=== PATIENT | male | born 1960 | race Caucasian/White ===

== ENCOUNTER 2017-03-18 17:25 | Inpatient (IN) | payer MEDICARE ==
[~2017-03-18] VITALS: Ht 167.6 cm; Wt 68.0 kg
[2017-03-18 22:00] VITALS: BP 114/75
[2017-03-19] VITALS: BP 111/65
[2017-03-19] MEDS ORDERED: Promethazine/DM 6.25mg/5ml ORAL PRN (00:45)
[2017-03-19 04:00] VITALS: BP 114/74
[2017-03-19] MEDS: NovoLOG Insulin Flexpen SUBQ SCH ×2 (06:30→11:30)
[2017-03-19 07:06] LABS: ANION GAP 13 (5-15); CALCIUM 9.1 mg/dL (8.6-10.2); CARBON DIOXIDE 29 mEQ/L (20-30); CHLORIDE 102 mEQ/L (98-107); GLOMERULAR FILTRATION RATE > 60 mL/min (>60); HEMOLYSIS 6; POTASSIUM 4.4 mEQ/L (3.4-4.9); SODIUM 144 mEQ/L (135-145)
[2017-03-19 07:09] LABS: BASOPHILS % (AUTO) 0.9 % (0.0-2.0); EOSINOPHILS % (AUTO) 4.2 % (0.0-3.0); LYMPHOCYTES % (AUTO) 24.3 % (20.0-45.0); MEAN CORPUSCULAR HEMOGLOBIN 32.9 PG (27.0-31.0); MEAN CORPUSCULAR HGB CONC 34.4 G/DL (32.0-36.0); MEAN CORPUSCULAR VOLUME 96 FL (80-99); MEAN PLATELET VOLUME 9.6 FL (6.5-10.1); MONOCYTES % (AUTO) 9.3 % (1.0-10.0); NEUTROPHILS % (AUTO) 61.3 % (45.0-75.0); PLATELET COUNT 148 K/UL (150-450); RED BLOOD COUNT 4.67 M/UL (4.70-6.10); WHITE BLOOD COUNT 7.3 K/UL (4.8-10.8)
[2017-03-19 08:46] VITALS: BP 116/78
[2017-03-19] MEDS: ZyPREXA Zydis 10mg tab ORAL SCH (09:14)
[2017-03-19] MEDS: FLUOROMETHOLONE 0.1% BOTH EYES SCH ×2 (09:39→17:46)
[2017-03-19] MEDS: OPTH BOTH EYES SCH ×2 (09:39→17:46)
[2017-03-19 11:21] VITALS: BP 110/69
--- NOTE | 2017-03-19 11:36 | Diagnostic Imaging Report ---
Indication: COPD shortness of breath Technique: One view of the chest Comparison: none Findings: Lungs and pleural spaces are clear. Heart size is normal. Aorta is somewhat tortuous Impression: No acute process
--- NOTE | 2017-03-19 13:57 | History and Physical ---
History of Present Illness General Date patient seen: Mar 19, 2017 Time patient seen: 13:57 Reason for Hospitalization: COPD exacerbation Present Illness HPI 56yo male with pmh of COPD, depression, bipolar d/o who presents with SOB. Pt states that he has been feeling more SOB and w/ cough productive of mucus for the past few days. Pt denies f/c, n/v, d/c, chest pain, abd pain, dysuria. Pt also c/o generalized weakness and wants to get PT/OT rehab. Allergies: Coded Allergies: PENICILLINS (Verified Allergy, Intermediate, 03/18/17) Patient History History Provided By: Patient, Medical Record, PMD Healthcare decision maker Resuscitation status Advanced Directive on File Yes Past Medical/Surgical History Past Medical/Surgical History: (1) COPD (chronic obstructive pulmonary disease) (2) Depression (3) Bipolar disorder Family History Family History: Patient reports no known family medical history. Social History Social History: (1) lives at board and care Review of Systems Constitutional: Reports: weakness Eye: Reports: no symptoms ENT: Reports: no symptoms Respiratory: Reports: cough, shortness of breath Cardiovascular: Reports: no symptoms Gastrointestinal: Reports: no symptoms Genitourinary: Reports: no symptoms Musculoskeletal: Reports: no symptoms Skin: Reports: no symptoms Psychiatric: Reports: no symptoms Neurological: Reports: no symptoms Endocrine: Reports: no symptoms Hematologic/Lymphatic: Reports: no symptoms All Other Systems: negative except mentioned in HPI Physical Exam Physical Exam Narrative General: alert, cooperative, no distress, appears stated age Head: normocephalic, without obvious abnormality, atraumatic Eyes: conjunctivae/corneas clear. PERRL, EOM's intact Throat: lips, mucosa, and tongue normal. MMM Neck: supple, symmetrical, trachea midline, and no JVD Lungs: +wheezing b/l Heart: regular rate and rhythm, S1, S2 normal, no murmur, click, rub or gallop Abdomen: soft, non-tender, non-distended, bowel sounds normal; no masses or organomegaly Extremities: extremities normal, atraumatic, no cyanosis or edema Pulses: 2+ and symmetric Skin: skin color, texture, turgor normal; no rashes or lesions Neurologic: grossly normal, no focal deficits Last 24 Hour Vital Signs Date Time Temp Pulse Resp B/P Pulse Ox O2 Delivery O2 Flow Rate FiO2 03/19/17 11:21 97.9 69 15 110/69 98 Room Air 03/19/17 08:46 97.3 84 15 116/78 97 Room Air 03/19/17 04:00 97.7 79 18 114/74 96 Room Air 03/19/17 00:00 97.0 76 18 111/65 95 Room Air 03/18/17 22:00 97.7 78 18 114/75 96 Room Air Intake and Output 03/18/17 03/19/17 19:00 07:00 Intake Total 250 ml Balance 250 ml Intake Oral 250 ml # Voids 1 Laboratory Tests Test 03/19/17 05:35 White Blood Count 7.3 K/UL (4.8-10.8) Red Blood Count 4.67 M/UL (4.70-6.10) L Hemoglobin 15.4 G/DL (14.2-18.0) Hematocrit 44.7 % (42.0-52.0) Mean Corpuscular Volume 96 FL (80-99) Mean Corpuscular Hemoglobin 32.9 PG (27.0-31.0) H Mean Corpuscular Hemoglobin Concent 34.4 G/DL (32.0-36.0) Red Cell Distribution Width 12.0 % (11.6-14.8) Platelet Count 148 K/UL (150-450) L Mean Platelet Volume 9.6 FL (6.5-10.1) Neutrophils (%) (Auto) 61.3 % (45.0-75.0) Lymphocytes (%) (Auto) 24.3 % (20.0-45.0) Monocytes (%) (Auto) 9.3 % (1.0-10.0) Eosinophils (%) (Auto) 4.2 % (0.0-3.0) H Basophils (%) (Auto) 0.9 % (0.0-2.0) Sodium Level 144 mEQ/L (135-145) Potassium Level 4.4 mEQ/L (3.4-4.9) Chloride Level 102 mEQ/L (98-107) Carbon Dioxide Level 29 mEQ/L (20-30) Anion Gap 13 (5-15) Blood Urea Nitrogen 10 mg/dL (7-23) Creatinine 1.0 mg/dL (0.7-1.2) Estimat Glomerular Filtration Rate > 60 mL/min (>60) Glucose Level 92 mg/dL (74-106) Calcium Level 9.1 mg/dL (8.6-10.2) Height (Feet): 5 Height (Inches): 6.00 Weight (Pounds): 150 Medications Current Medications Medications (Trade) Dose Ordered Sig/Eldon Route PRN Reason Start Time Stop Time Status Last Admin Dose Admin Dextrose (Dextrose 50%) STAT PRN IV Hypoglycemia 03/19/17 00:30 04/18/17 00:29 Fluorometholone (Flarex/FML) 1 drop TWICE A DAY BOTH EYES 03/19/17 09:00 04/18/17 08:59 03/19/17 09:39 Fluoxetine HCl (PROzac) 20 mg DAILY ORAL 03/19/17 09:00 04/18/17 08:59 03/19/17 09:14 Insulin Aspart (NovoLOG) BEFORE MEALS AND HS SUBQ 03/19/17 06:30 04/18/17 06:29 Levothyroxine Sodium (Synthroid) 100 mcg DAILY@0630 ORAL 03/19/17 06:30 04/18/17 06:29 03/19/17 06:30 Olanzapine (ZyPREXA Zydis) 20 mg DAILY ORAL 03/19/17 09:00 04/18/17 08:59 03/19/17 09:14 Pantoprazole (Protonix) 40 mg DAILY ORAL 03/19/17 09:00 04/18/17 08:59 03/19/17 09:13 Promethazine HCl/ Dextromethorphan (Phenergan DM) 6.25 mg Q6H PRN ORAL For Cough 03/19/17 00:45 04/18/17 00:44 Risperidone (RisperDAL) 1 mg TWICE A DAY ORAL 03/19/17 09:00 04/18/17 08:59 03/19/17 09:14 Risperidone (RisperDAL) 2 mg TWICE A DAY ORAL 03/19/17 09:00 04/18/17 08:59 03/19/17 09:20 Assessment/Plan Problem List: (1) COPD exacerbation ICD Codes: J44.1 - Chronic obstructive pulmonary disease with (acute) exacerbation SNOMED: 853021307, 244613931 (2) Bipolar disorder ICD Codes: F31.9 - Bipolar disorder, unspecified SNOMED: 72293789 (3) Depression ICD Codes: F32.9 - Major depressive disorder, single episode, unspecified SNOMED: 15807495 Status: stable Assessment/Plan Admit inpt Nebs q6h ATC and q4h PRN Prednisone 40mg qd x 5d Will hold off on abx as not clear infectious sign (no fever, no leukocytosis) Cont other meds 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 Disposition: Once the patient is stable to leave the hospital, I anticipate the patient will likely be discharged to the following environment: SNF I spent 70 minutes on this patient's case, and 38 minutes were dedicated to counseling and/or care coordination. Discussed with patient/family, nursing staff, SW/CM rregarding clinical status, treatment course, and disposition planning. Time of note may not reflect time of encounter. Nicolette Stinson M.D. Mar 19, 2017 13:57
[2017-03-19] MEDS ORDERED: Milk of Magnesia 30ml Ud ORAL PRN (14:00)
[2017-03-19] MEDS ORDERED: Mylanta II UD 30ml ORAL PRN (14:00)
[2017-03-19] MEDS ORDERED: DuoNeb 0.5-3(2.5)mg/3ml neb HHN PRN (14:00)
[2017-03-19] MEDS ORDERED: Miralax 17gm pkt ORAL PRN (14:00)
[2017-03-19] MEDS ORDERED: DuoNeb 0.5-3(2.5)mg/3ml neb ONE (14:15)
[2017-03-19] MEDS: DuoNeb 0.5-3(2.5)mg/3ml neb HHN SCH ×2 (14:44→20:12)
[2017-03-19] MEDS: PredniSONE 20mg tab ORAL SCH (16:09)
[2017-03-19 16:17] VITALS: BP 110/71
[2017-03-19 20:00] VITALS: BP 109/70
[2017-03-19] MEDS: Heparin 5000 units/ml inj SUBQ SCH (21:00)
[2017-03-19] MEDS: Docusate 100mg cap ORAL SCH (21:02)
[2017-03-20] VITALS: BP 109/72
[2017-03-20] MEDS: DuoNeb 0.5-3(2.5)mg/3ml neb HHN SCH ×4 (00:11→19:49)
[2017-03-20 04:00] VITALS: BP 111/71
[2017-03-20 07:08] LABS: BASOPHILS % (AUTO) 0.3 % (0.0-2.0); EOSINOPHILS % (AUTO) 0.2 % (0.0-3.0); LYMPHOCYTES % (AUTO) 16.9 % (20.0-45.0); MEAN CORPUSCULAR HEMOGLOBIN 33.8 PG (27.0-31.0); MEAN CORPUSCULAR HGB CONC 36.3 G/DL (32.0-36.0); MEAN CORPUSCULAR VOLUME 93 FL (80-99); MEAN PLATELET VOLUME 10.4 FL (6.5-10.1); MONOCYTES % (AUTO) 5.4 % (1.0-10.0); NEUTROPHILS % (AUTO) 77.3 % (45.0-75.0); PLATELET COUNT 180 K/UL (150-450); RED BLOOD COUNT 4.83 M/UL (4.70-6.10); RED CELL DISTRIBUTION WIDTH 11.8 % (11.6-14.8); WHITE BLOOD COUNT 8.6 K/UL (4.8-10.8)
[2017-03-20 07:19] LABS: HEMOGLOBIN A1C 4.8 % (< 6.0)
[2017-03-20 07:27] LABS: ALANINE AMINOTRANSFERASE 29 U/L (3-41); ALBUMIN/GLOBULIN RATIO 1.8 (1.0-2.7); ANION GAP 18 (5-15); ASPARTATE AMINO TRANSFERASE 19 U/L (5-40); CALCIUM 9.1 mg/dL (8.6-10.2); CARBON DIOXIDE 23 mEQ/L (20-30); CHLORIDE 99 mEQ/L (98-107); CHOLESTEROL 164 mg/dL (< 200); CHOLESTEROL/HDL RATIO 3.9 (3.3-4.4); CREATININE 0.8 mg/dL (0.7-1.2); GLOMERULAR FILTRATION RATE > 60 mL/min (>60); HEMOLYSIS 7; LDL CHOLESTEROL (CALC.) 91 mg/dL (60-99); POTASSIUM 4.1 mEQ/L (3.4-4.9); SODIUM 140 mEQ/L (135-145); TOTAL PROTEIN 6.6 g/dL (6.6-8.7)
[2017-03-20 07:29] LABS: TROPONIN I < 0.30 ng/mL (<=0.30)
[2017-03-20 08:00] VITALS: BP 117/71
[2017-03-20] MEDS: Docusate 100mg cap ORAL SCH ×2 (08:53→21:07)
[2017-03-20] MEDS: ZyPREXA Zydis 10mg tab ORAL SCH (08:53)
[2017-03-20] MEDS: PredniSONE 20mg tab ORAL SCH (08:54)
[2017-03-20] MEDS: OPTH BOTH EYES SCH ×2 (08:54→17:56)
[2017-03-20] MEDS: FLUOROMETHOLONE 0.1% BOTH EYES SCH ×2 (08:54→17:56)
[2017-03-20] MEDS: Heparin 5000 units/ml inj SUBQ SCH ×2 (08:57→21:00)
[2017-03-20 12:00] VITALS: BP 112/71
--- NOTE | 2017-03-20 15:52 | General Progress Note ---
Assessment/Plan Problem List: (1) COPD exacerbation ICD Codes: J44.1 - Chronic obstructive pulmonary disease with (acute) exacerbation SNOMED: 119966445, [id number] (2) Bipolar disorder ICD Codes: F31.9 - Bipolar disorder, unspecified SNOMED: 45599013 (3) Depression ICD Codes: F32.9 - Major depressive disorder, single episode, unspecified SNOMED: 69358864 Subjective Date patient seen: Mar 20, 2017 Time patient seen: 15:52 ROS Limited/Unobtainable: No HEENT: Reports: no symptoms Cardiovascular: Reports: no symptoms Respiratory: Reports: cough, shortness of breath Gastrointestinal/Abdominal: Reports: no symptoms Genitourinary: Reports: no symptoms Neurologic/Psychiatric: Reports: no symptoms Endocrine: Reports: no symptoms Hematologic/Lymphatic: Reports: no symptoms Allergies: Coded Allergies: PENICILLINS (Verified Allergy, Intermediate, 03/18/17) All Systems: reviewed and negative except above Objective Last 24 Hour Vital Signs Date Time Temp Pulse Resp B/P Pulse Ox O2 Delivery O2 Flow Rate FiO2 03/20/17 13:47 90 20 Room Air 03/20/17 13:33 92 16 Room Air 03/20/17 12:00 97.9 81 20 112/71 96 Room Air 03/20/17 08:00 97.7 98 20 117/71 93 Room Air 03/20/17 07:54 93 20 100 Room Air 03/20/17 07:40 90 16 94 Room Air 03/20/17 04:00 96.9 74 18 111/71 100 Room Air 03/20/17 00:12 82 20 99 Room Air 03/20/17 00:11 80 20 95 Room Air 03/20/17 00:00 96.6 77 19 109/72 99 Room Air 03/19/17 20:00 98.4 77 18 109/70 96 Room Air 03/19/17 19:45 88 20 98 Room Air 03/19/17 19:30 83 20 96 Room Air 03/19/17 16:17 98.2 78 16 110/71 96 Room Air Intake and Output 03/19/17 03/20/17 19:00 07:00 Intake Total 2000 ml Balance 2000 ml Intake Oral 2000 ml # Voids 4 2 # Bowel Movements 1 Laboratory Tests 03/20/17 05:35: White Blood Count 8.6, Red Blood Count 4.83, Hemoglobin 16.3, Hematocrit 44.9, Mean Corpuscular Volume 93, Mean Corpuscular Hemoglobin 33.8H, Mean Corpuscular Hemoglobin Concent 36.3H, Red Cell Distribution Width 11.8, Platelet Count 180, Mean Platelet Volume 10.4H, Neutrophils (%) (Auto) 77.3H, Lymphocytes (%) (Auto ) 16.9L, Monocytes (%) (Auto) 5.4, Eosinophils (%) (Auto) 0.2, Basophils (%) ( Auto) 0.3, Sodium Level 140, Potassium Level 4.1, Chloride Level 99, Carbon Dioxide Level 23, Anion Gap 18H, Blood Urea Nitrogen 9, Creatinine 0.8, Estimat Glomerular Filtration Rate > 60, Glucose Level 104, Hemoglobin A1c 4.8, Calcium Level 9.1, Total Bilirubin 0.4, Aspartate Amino Transf (AST/SGOT) 19, Alanine Aminotransferase (ALT/SGPT) 29, Alkaline Phosphatase 97, Troponin I < 0.30, Pro- B-Type Natriuretic Peptide 40, Total Protein 6.6, Albumin 4.3, Globulin 2.3, Albumin/Globulin Ratio 1.8, Triglycerides Level 157H, Cholesterol Level 164, LDL Cholesterol 91, HDL Cholesterol 42, Cholesterol/HDL Ratio 3.9, Thyroid Stimulating Hormone (TSH) 1.310 Height (Feet): 5 Height (Inches): 6.00 Weight (Pounds): 150 Nicolette Stinson M.D. Mar 20, 2017 15:52
[2017-03-20 16:00] VITALS: BP 112/59
[2017-03-20 20:00] VITALS: BP 117/70
[2017-03-21] VITALS: BP 119/65
[2017-03-21] MEDS: DuoNeb 0.5-3(2.5)mg/3ml neb HHN SCH ×3 (01:14→12:54)
[2017-03-21 04:00] VITALS: BP 127/69
[2017-03-21 08:00] VITALS: BP 102/64
[2017-03-21] MEDS: Docusate 100mg cap ORAL SCH (08:36)
[2017-03-21] MEDS: PredniSONE 20mg tab ORAL SCH (08:37)
[2017-03-21] MEDS: Heparin 5000 units/ml inj SUBQ SCH (08:38)
[2017-03-21] MEDS: ZyPREXA Zydis 10mg tab ORAL SCH (08:38)
[2017-03-21] MEDS: OPTH BOTH EYES SCH (08:42)
[2017-03-21] MEDS: FLUOROMETHOLONE 0.1% BOTH EYES SCH (08:42)
[2017-03-21 12:00] VITALS: BP 117/74
[2017-03-21] MEDS ORDERED: ACETAMINOPHEN325 M1 ORAL (12:27)
[2017-03-21] MEDS ORDERED: MYLANTA30 M1 GT (12:30)
[2017-03-21] MEDS ORDERED: DIPHENHYDRAMINE25 M1 ORAL (12:32)
[2017-03-21] MEDS ORDERED: BISACODYL10 M1 RC (12:32)
[2017-03-21] MEDS ORDERED: COLACE100 MG ORAL (12:33)
[2017-03-21] MEDS ORDERED: FML BOTH EYES (12:41)
[2017-03-21] MEDS ORDERED: [UNRECOGNIZED DRUG - OTHER] BOTH EYES (12:41)
[2017-03-21] MEDS ORDERED: PROZAC20 MG ORAL (12:41)
[2017-03-21] MEDS ORDERED: FML5 ML OP (12:41)
[2017-03-21] MEDS ORDERED: ALBUTEROL2.5 MG/3 M INH ×2 (12:55→12:56)
[2017-03-21] MEDS ORDERED: LEVOTHYROXINE100 MCG ORAL (12:57)
[2017-03-21] MEDS ORDERED: NICODERM CQ1 EAC1 TD (12:59)
[2017-03-21] MEDS ORDERED: MOM30 ML ORAL (12:59)
[2017-03-21] MEDS ORDERED: ZYPREXA ZYDIS10 MG ORAL (13:01)
[2017-03-21] MEDS ORDERED: ZOFRAN4 M1 ORAL (13:01)
[2017-03-21] MEDS ORDERED: PROTONIX20 MG ORAL (13:01)
[2017-03-21] MEDS ORDERED: POLYETHYLENE G500 G2 MC (13:03)
[2017-03-21] MEDS ORDERED: PREDNISONE10 M2 PO (14:15)
[2017-03-21] MEDS ORDERED: PREDNISONE20 MG ORAL (14:19)
--- NOTE | 2017-03-21 14:45 | Discharge Summary ---
Discharge Summary Hospital Course Date of Admission Mar 18, 2017 at 19:41 Date of Discharge 04/20/17 Admitting Diagnosis HPI Ray John is a 56 year old male who was admitted on Mar 18, 2017 at 19:41 for Chronic Obtructive Pulmonary Disease Discharge Condition Upon Discharge: stable Discharge Disposition Patient was discharged to SNF/Subacute Facility(03) Discharge Diagnoses: Nicolette Stinson M.D. Mar 21, 2017 14:44
--- NOTE | 2017-03-28 08:48 | Discharge Summary ---
Discharge Summary Hospital Course Date of Admission Mar 18, 2017 at 19:41 Date of Discharge Mar 21, 2017 at 15:42 Admitting Diagnosis HPI Ray John is a 56 year old male who was admitted on Mar 18, 2017 at 19:41 for Chronic Obtructive Pulmonary Disease Hospital Course [id number] Discharge Discharge Disposition Patient was discharged to SNF/Subacute Facility(03) Discharge Diagnoses: Keiry Son NP Mar 28, 2017 08:48
--- NOTE | 2017-03-28 12:46 | Discharge Summary 2 SIG ---
DATE OF ADMISSION: 03/18/2017 DATE OF DISCHARGE: 03/21/2017 BRIEF HOSPITAL COURSE: The patient is a 56-year-old male with history of COPD, depression, bipolar disorder, presented with shortness of breath. The patient has been feeling more short of breath with productive cough and mucus for the past few days. Denies nausea and vomiting. No diarrhea. No constipation. No chest pain. No abdominal pain. No dysuria. He complained of generalized weakness and wants to get to SNF for deconditioning and rehabilitation. He was admitted to medical floor and was given nebulizer treatments and was started on prednisone. Chest x-ray done showed no acute process. No antibiotic was given as there were no clear signs of infectious disorder. No fever. No leukocytosis. He was counseled on smoking cessation and was given nicotine patch. He underwent physical therapy and occupational therapy and was eventually discharged to a SNF. FINAL DIAGNOSES: 1. Acute chronic obstructive pulmonary disease exacerbation. 2. Bipolar disorder. 3. Depression. Nicolette Stinson M.D. I have been assigned to dictate discharge summary on this account and I was not involved in the patient's management. Keiry Son N.P. DR: DOTTIE JOB#: [id number] CC: WALLACE
== END 2017-03-21 15:42 | DRG 192 ==
LOC: 4E 19:41
DX: J44.1 Chronic obstructive pulmonary disease with (acute) exacerbation (principal); F31.9 Bipolar disorder, unspecified; Z88.0 Allergy status to penicillin
CPT/HCPCS: 36415; 71010; 80048; 80053; 80061; 82962; 83036; 83880; 84443; 84484; 85025; 94640; 94664; J1815; J7620